=== PATIENT | female | born 1965 | race Caucasian/White ===

== ENCOUNTER 2021-01-22 09:11 | Inpatient (IN) | payer MEDICARE, MEDICAID ==
[~2021-01-22] VITALS: Ht 157.5 cm; Wt 73.0 kg
[~2021-01-22 09:11] MED LIST: CITA40TA22 PO; CYCL-1 PO; GABA300C PO; IBUP-1985 PO; LANS30CA37 PO; LEVO75TA7 PO; PERCOCET; TRAZ-251 PO; VENL25TA48 PO
[2021-01-22 09:51] LABS: BASOPHILS % (AUTO) 0.8 % (0-1); EOSINOPHILS # (AUTO) 0.1 X10'3 (0-0.9); EOSINOPHILS % (AUTO) 1.2 % (0-6); HEMATOCRIT 36.1 % (35.0-45.0); HEMOGLOBIN 11.8 g/dl (12.0-16.0); LYMPHOCYTES # (AUTO) 1.5 X10'3 (1.1-4.8); LYMPHOCYTES % (AUTO) 27.2 % (21-51); MEAN CORPUSCULAR HEMOGLOBIN 28.8 PG (27.0-31.0); MEAN CORPUSCULAR HGB CONC 32.7 g/dL (33.0-36.5); MEAN CORPUSCULAR VOLUME 88.1 FL (78-98); MEAN PLATELET VOLUME 7.4 FL (7.4-10.4); MONOCYTES # (AUTO) 0.3 X10'3 (0-0.9); MONOCYTES % (AUTO) 6.1 % (2-12); NEUTROPHILS # (AUTO) 3.7 X10'3 (1.8-7.7); NEUTROPHILS % (AUTO) 64.7 % (42-75); PLATELET COUNT 435 X10'3 (140-440); RED BLOOD COUNT 4.09 X10'6 (4.20-5.60); RED CELL DISTRIBUTION WIDTH 14.4 % (11.5-14.5); WHITE BLOOD COUNT 5.7 X10'3 (4.5-11.0)
[2021-01-22 10:15] LABS: ALANINE AMINOTRANSFERASE 65 U/L (12-78); ALBUMIN 3.6 G/DL (3.4-5.0); ALBUMIN/GLOBULIN RATIO 1.2 (1.1-1.5); ALKALINE PHOSPHATASE 112 IU/L (46-116); ANION GAP 8 (8-16); ASPARTATE AMINO TRANSFERASE 48 U/L (10-37); BILIRUBIN,TOTAL 0.2 MG/DL (0.1-1.0); BLOOD UREA NITROGEN 9 MG/DL (7-18); BUN/CREATININE RATIO 10.8 (6.6-38.0); CALCIUM 8.5 MG/DL (8.5-10.1); CHLORIDE 104 MMOL/L (99-107); CREATININE 0.83 MG/DL (0.40-0.90); GLUCOSE 114 MG/DL (70-104); SODIUM 144 MMOL/L (135-145); TOTAL CARBON DIOXIDE 32.1 MMOL/L (24-32); TOTAL PROTEIN 6.6 G/DL (6.4-8.2); eGFR 71 ML/MIN
[2021-01-22 10:19] LABS: POTASSIUM 2.8 MMOL/L (3.5-5.1)
[2021-01-22 10:23] LABS: ETHANOL < 0.010 GM/DL (0.0-0.010)
[2021-01-22] MEDS ORDERED: potassium Cl 10 mEq/100mL bag IV ONE (10:25)
[2021-01-22] MEDS ORDERED: potassium Cl 20 mEq SR tablet PO ONE (10:25)
[2021-01-22 10:44] LABS: CLARITY,URINE CLEAR (Clear); COLOR,URINE YELLOW (Yellow); GLUCOSE, URINE NEGATIVE (Neg); KETONES,URINE NEGATIVE (Neg); LEUKOCYTE ESTERASE ,URINE NEGATIVE (Neg); NITRITES, URINE NEGATIVE (Neg); OCCULT BLOOD,URINE NEGATIVE (Neg); PROTEIN,URINE NEGATIVE (Neg); UROBILINOGEN,URINE 0.2 E.U/dL (0.2-1.0)
[2021-01-22 10:45] LABS: UA COLLECTION TYPE CLN CATCH MIDSTREAM
[2021-01-22 10:52] LABS: URINE AMPHETAMINE SCREEN NEGATIVE (Neg); URINE BARBITUATE SCREEN NEGATIVE (Neg); URINE BENZODIAZEPINES SCREEN POSITIVE (Neg); URINE CANNABINOID SCREEN POSITIVE (Neg); URINE COCAINE SCREEN NEGATIVE (Neg); URINE METHADONE SCREEN NEGATIVE (Neg); URINE OPIATE SCREEN POSITIVE (Neg); URINE PHENCYCLIDINE SCREEN NEGATIVE (Neg)
[2021-01-22 10:55] LABS: URINE HCG NEGATIVE (NEG)
--- NOTE | 2021-01-22 13:45 | NUR ---
[facility] ROSENTHAL IS GOING TO SEE THE PT .
--- NOTE | 2021-01-22 15:06 | NUR ---
PT RESTING IN BED QUIETLY ,WILL CONT TO MONITOR.
--- NOTE | 2021-01-22 16:02 | NUR ---
PT ON 139 HOLD ,PT FRIEND CALLED NAMED "LORNA" AND LEFT ,MESSAGE TO CALL US FOR LOOKING AT PT ANIMALS AT [phone].
--- NOTE | 2021-01-22 16:04 | NUR ---
PT SLEEPING IN RGT LATERAL POSITION ,RR WNL.
--- NOTE | 2021-01-22 16:30 | NUR ---
GOT CARD FROM PT BELONGING AND HAS NUMBER OF ALFRED [phone] AND LFT A MESSAGE.
[2021-01-22] MEDS ORDERED: ibuprofen tablet 400 MG TABLET PO ONE (19:30)
[2021-01-22] MEDS ORDERED: BACL10TA2 PO (19:35)
[2021-01-22] MEDS ORDERED: OXYB-58 PO (19:35)
[2021-01-22] MEDS ORDERED: ALPR0.255 PO (19:35)
[2021-01-22] MEDS ORDERED: FAMO20TA8 PO (19:35)
[2021-01-22] MEDS ORDERED: TRAZ150T78 PO (19:35)
[2021-01-22] MEDS ORDERED: OXYC1TAB17 PO (19:35)
[2021-01-22] MEDS ORDERED: DULO60CA65 PO (19:35)
--- NOTE | 2021-01-22 19:45 | NUR ---
PTS MED REC COMPLETED AND PROVIDED TO [facility]. PTS FRIEND/AND ROOMATE, LORNA CALLED AND MESSAGE LEFT ([phone]). SHE IS CONCERNED ABOUT HER ANIMALS BEING TAKEN CARE OF. PTS MOTHER THEN CALLED, JENNIFER, [phone] ([place], [place]), AND SHE REPORTED THAT SHE SPOKE WITH LORNA AT 4 PM TODAY AND THAT HE IS TAKING CARE OF HER ANIMALS. PT UPDATED. PT DOES STATE SHE NEEDS HER NERVE STIMULATOR BATTERY PACK FOR HER SPINAL STIMULATOR (FOR HER CHRONIC PAIN). I ASKED IF HER MOTHER TALKE WITH LORNA TO PASS THIS MESSAGE.
[2021-01-22] MEDS: oxyCODONE/APAP 10/325mg tablet PO PRN (22:12)
[2021-01-22] MEDS: ALPRAZolam 0.25mg tablet PO PRN (22:12)
[2021-01-22] MEDS: traZODone 150mg tablet PO SCH (22:19)
--- NOTE | 2021-01-22 22:23 | NUR ---
covid swab collected. pts piv removed. pt expected to be received to [facility]. cable television program director Logan coordinating this. Pt given trazadone, percocet and xanex. she requests also her hs doses of famotadine, cymbalta and ditropan. I explained i would try to get these ordered for her before she is discharged to [facility]. Pt moved form bed 12 to hallway 16.
[2021-01-22] MEDS: famotidine 20mg tablet PO SCH (22:25)
[2021-01-22] MEDS ORDERED: magnesium hydroxide 30ml (MOM) UD suspension PO PRN (23:15)
[2021-01-22] MEDS ORDERED: loperamide 2mg capsule PO PRN (23:15)
[2021-01-22] MEDS ORDERED: mag hydrox/Alum hydrox/simeth 30ml oral suspension PO PRN (23:15)
[2021-01-22] MEDS ORDERED: acetaminophen 325mg tablet PO PRN ×2 (23:15)
[2021-01-22 23:25] VITALS: BP 101/72
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
[2021-01-23] MEDS ORDERED: LEVO75TA PO (00:36)
[2021-01-23 07:30] LABS: HEMOGLOBIN A1C 6.3 % (4.5-6.2)
[2021-01-23 07:33] LABS: ALBUMIN 3.2 G/DL (3.4-5.0); ANION GAP 7 (8-16); BLOOD UREA NITROGEN 12 MG/DL (7-18); CALCIUM 8.5 MG/DL (8.5-10.1); CHLORIDE 110 MMOL/L (99-107); CHOLESTEROL 183 MG/DL (0-200); GLUCOSE 95 MG/DL (70-104); POTASSIUM 4.1 MMOL/L (3.5-5.1); SODIUM 148 MMOL/L (135-145); TOTAL CARBON DIOXIDE 30.8 MMOL/L (24-32); eGFR 74 ML/MIN
[2021-01-23 07:34] LABS: CHOL/HDL RATIO 2.6 (0.00-4.99); HDL CHOLESTEROL 71 MG/DL (35-60); LDL CHOLESTEROL 80 MG/DL (50-100); TRIGLYCERIDES 98 MG/DL (20-135)
[2021-01-23 08:00] VITALS: BP 129/83
[2021-01-23] MEDS ORDERED: oxybutynin 5mg tablet PO SCH (08:00)
[2021-01-23] MEDS ORDERED: famotidine 20mg tablet PO SCH (08:00)
[2021-01-23] MEDS ORDERED: duloxetine 30mg CAPSULE.DR PO SCH (08:00)
[2021-01-23] MEDS: duloxetine 30mg CAPSULE.DR PO SCH ×3 (08:06→20:43)
[2021-01-23] MEDS: oxybutynin 5mg tablet PO SCH ×3 (08:06→20:43)
[2021-01-23] MEDS: levoTHYROXINE 75mcg tablet PO SCH (08:07)
[2021-01-23] MEDS: famotidine 20mg tablet PO SCH ×2 (08:07→20:43)
[2021-01-23] MEDS: baclofen 10mg tablet PO SCH ×2 (08:07→20:43)
[2021-01-23] MEDS: ALPRAZolam 0.25mg tablet PO PRN ×2 (12:16→20:50)
[2021-01-23] MEDS: oxyCODONE/APAP 10/325mg tablet PO PRN ×2 (12:16→20:50)
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
[2021-01-23 20:27] VITALS: BP 98/55
[2021-01-23] MEDS: traZODone 150mg tablet PO SCH (20:43)
[2021-01-24] MEDS ORDERED: ondansetron 4mg rapidly disintigrating tab PO PRN
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
[2021-01-24] MEDS: levoTHYROXINE 75mcg tablet PO SCH (07:31)
[2021-01-24] MEDS: oxybutynin 5mg tablet PO SCH (07:31)
[2021-01-24] MEDS: famotidine 20mg tablet PO SCH (07:31)
[2021-01-24] MEDS: baclofen 10mg tablet PO SCH (07:31)
[2021-01-24] MEDS: duloxetine 30mg CAPSULE.DR PO SCH (07:31)
[2021-01-24] MEDS: oxyCODONE/APAP 10/325mg tablet PO PRN (07:33)
[2021-01-24 08:00] VITALS: BP 90/62
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
== END 2021-01-24 15:40 | disposition home or self-care (01) | DRG 885 ==
LOC: ER 09:11 → ED HOLD 17:40 → ADULT MH 23:06
PROVIDERS: ADMIT Psychiatry & Neurology Psychiatry; ATTEND Psychiatry & Neurology Psychiatry
DX: F23 Brief psychotic disorder (principal); E87.6 Hypokalemia; E03.9 Hypothyroidism, unspecified; F12.10 Cannabis abuse, uncomplicated; F43.12 Post-traumatic stress disorder, chronic; J44.9 Chronic obstructive pulmonary disease, unspecified; K21.9 Gastro-esophageal reflux disease without esophagitis; R32 Unspecified urinary incontinence; G89.29 Other chronic pain; Z20.822 Contact with and (suspected) exposure to COVID-19; M54.9 Dorsalgia, unspecified; Z79.899 Other long term (current) drug therapy; Z83.3 Family history of diabetes mellitus; Z87.891 Personal history of nicotine dependence; Z88.0 Allergy status to penicillin; Z90.710 Acquired absence of both cervix and uterus; Z96.82 Presence of neurostimulator
CPT/HCPCS: 36415; 80048; 80053; 80061; 80305; 80320; 81003; 81025; 83036; 84443; 85025; 87081; 87635; 96365; 99285; J3480